=== PATIENT | female | born 1950 | race Caucasian/White ===

== ENCOUNTER → 2020-07-18 | Outpatient (CLI) | payer OTHER ==
--- NOTE | 2020-07-18 12:56 | RAD ---
EXAM: Left shoulder, 3 views; left humerus, 2 views. HISTORY: Fall. COMPARISON: None. FINDINGS: 3 views of left shoulder and 2 views of the left humerus are obtained. There is a displaced humeral head and neck fracture. The acromioclavicular joint is intact. There is no shoulder dislocation. There is cervical spinal fusion instrumentation. IMPRESSION: Displaced left humeral head and neck fracture. Electronically signed by: Rosaline Javed MD (07/18/2020 12:54 PM) [id number]
--- NOTE | 2020-07-18 13:22 | RAD ---
EXAM: Right breast sonogram. HISTORY: 70-year-old female presents with a right breast lump and bruising after a fall. TECHNIQUE: Sonographic imaging of the right breast was performed. COMPARISON: None. FINDINGS: There is a complex hypoechoic and isoechoic lesion with small fluid component within the 1:00 position of the right breast 3 cm from the nipple at the site of palpable concern, measuring 1.5 x 0.8 x 1.5 cm. This demonstrates no internal blood flow. There is overlying skin ecchymosis. IMPRESSION: 1. 1.5 cm suspected hematoma at the site of palpable concern within the right breast at the 1:00 position. This demonstrates no internal blood flow to suggest a solid lesion component. However, follow-up in 3 months is recommended to confirm interval decrease or resolution. 2. BI-RADS Category 3: Probably benign finding(s). Short term follow up with a right breast sonogram in 3 months is recommended. Electronically signed by: Rosaline Javed MD (07/18/2020 1:19 PM) [id number]
--- NOTE | 2020-07-18 13:38 | RAD ---
EXAM: Chest CT without intravenous contrast. HISTORY: Abnormal weight loss. TECHNIQUE: Computed tomographic images of the chest were obtained without contrast. Multiplanar reformatting was performed. *One or more of the following individualized dose reduction techniques were utilized for this examination: 1. Automated exposure control. 2. Adjustment of the mA and/or kV according to patient size. 3. Use of iterative reconstruction technique. COMPARISON: None. FINDINGS: The heart is normal in size. There is a small pericardial effusion. There is calcified atherosclerotic plaque involving the aorta, main aortic branch vessels and coronary arteries. There is calcification of the aortic valve. There are nonspecific mediastinal and hilar lymph nodes. These are not pathologically enlarged. There is no pneumothorax or pleural effusion. There is pulmonary emphysema. There is mild biapical pleural parenchymal scarring. There is no pulmonary nodule. There is no infiltrate. No hepatic lesion is seen. There is an enlarged left hepatic lobe and relatively small right hepatic lobe. The visualized portions of the pancreas are unremarkable. There is a suspected 2.0 cm right adrenal adenoma or nodular thickening of the right adrenal gland. The visualized kidneys demonstrate no mass or stone. There are chronic moderate severe L2 and mild L1 compression fractures. There are are stable mild superior thoracic superior endplate depressions. No acute fracture is seen. There is no suspicious osseous lesion. There is multilevel degenerative change involving the thoracic and lumbar spine. IMPRESSION: 1. Pulmonary emphysema. There is no acute thoracic finding or evidence of thoracic malignancy. 2. Suspected 2.0 cm right adrenal adenoma or nodular thickening of the right adrenal gland. 3. Small pericardial effusion. Electronically signed by: Rosaline Javed MD (07/18/2020 1:35 PM) [id number]
== END ==
LOC: DXRAD 12:19
PROVIDERS: ATTEND Specialist
DX: S42.212A Unspecified displaced fracture of surgical neck of left humerus, initial encounter for closed fracture (principal); M47.815 Spondylosis without myelopathy or radiculopathy, thoracolumbar region; R63.4 Abnormal weight loss; R29.898 Other symptoms and signs involving the musculoskeletal system; I31.3 Pericardial effusion (noninflammatory); I70.0 Atherosclerosis of aorta; I25.10 Atherosclerotic heart disease of native coronary artery without angina pectoris; J43.9 Emphysema, unspecified; J98.4 Other disorders of lung; M48.56XA Collapsed vertebra, not elsewhere classified, lumbar region, initial encounter for fracture; X58.XXXA Exposure to other specified factors, initial encounter; Y93.89 Activity, other specified; Y92.89 Other specified places as the place of occurrence of the external cause; Y99.8 Other external cause status
CPT/HCPCS: 71250; 73030; 73060; 76641

== ENCOUNTER → 2020-08-01 | Outpatient (CLI) | payer OTHER ==
--- NOTE | 2020-08-01 16:31 | RAD ---
SHOULDER 2+V LEFT DATE: 08/01/2020 12:00 AM INDICATION: LEFT SHOULDER PAIN / Spl. Instructions: / History: COMPARISON: 07/18/2020. FINDINGS/ IMPRESSION: Displaced proximal humerus fracture with unchanged fracture fragment alignment. No significant interval healing changes. Electronically signed by: Primitivo Leung MD (08/01/2020 4:28 PM) [id number]
== END ==
LOC: DXRAD 14:37
PROVIDERS: ATTEND Orthopaedic Surgery
DX: S42.202A Unspecified fracture of upper end of left humerus, initial encounter for closed fracture (principal); S42.309A Unspecified fracture of shaft of humerus, unspecified arm, initial encounter for closed fracture; X58.XXXA Exposure to other specified factors, initial encounter; Y93.89 Activity, other specified; Y92.89 Other specified places as the place of occurrence of the external cause; Y99.8 Other external cause status
CPT/HCPCS: 73030

== ENCOUNTER → 2020-08-28 | Outpatient (CLI) | payer OTHER ==
--- NOTE | 2020-08-28 16:26 | RAD ---
EXAM: DUAL ENERGY X-RAY ABSORPTIOMETRY (DEXA). HISTORY: Postmenopausal screening. FINDINGS: The lowest measured T-score is -2.8 in the right femoral neck, based on a bone mineral dens ity of 0.642 g/cm^2. Refer to the worksheets for full detail. No comparison examinations are available. IMPRESSION: Osteoporosis. Bone mineral density yields a T-score of -2.5 or less. Fracture risk is high. FRAX was not calculated. METHODOLOGY: Dual energy x-ray absorptiometry was performed to measure bone mineral density. The foll owing analysis is based on the 2019 Official Positions of the International Society for Clinical Dens itometry: Measurements of the hips and the average of L1-L4 are preferred. When the spine and/or hip cannot be feasibly measured or interpreted, or in the setting of hyperparathyroidism, distal radial bone minera l density may be measured. The lumbar spine T-score is based on the average bone mineral density of L1-L4. In the setting of art ifact or anatomic abnormality, some lumbar levels may be excluded, and the remaining levels used for calculation. A single lumbar level is not used for diagnosis, and if only a single level is available for assessment, another anatomic site will be used to assign a diagnosis. The hip T-score is based on the bone mineral density measurement of the femoral neck or total proxima l femur of either side, whichever is lowest. Bilateral mean values are not used for diagnosis. The forearm T-score is derived from 33% of the distal radius of the nondominant forearm. For postmenopausal and perimenopausal women, and men age 50 or older, of all ethnic groups, T-scores are calculated through comparison of the current measurement with the NHANES III database standard fo r females aged 20-29 years. The lowest T-score of the evaluated anatomic sites is used to a ssign a diagnosis based on the World Health Organization densitometric classification. In premenopausal females and males younger than age 50, a Z-score is calculated based on population s pecific reference data for patient sex and self-reported ethnicity. Electronically signed by: Ozzy Salazar MD (08/28/2020 4:23 PM) [facility]
== END ==
LOC: DXRAD 11:14
PROVIDERS: ATTEND Orthopaedic Surgery
DX: M81.0 Age-related osteoporosis without current pathological fracture (principal)
CPT/HCPCS: 77080

== ENCOUNTER → 2020-08-29 | Outpatient (CLI) | payer OTHER ==
--- NOTE | 2020-08-29 18:30 | RAD ---
Examination: XR SHOULDER_LEFT 2+ VIEWS History: Reason: HUMERUS FRACTURE / Spl. Instructions: / History: Comparison/Correlation: 08/01/2020 Left Shoulder x-ray Findings: 2 images of the left shoulder were obtained. These include scapular Y view and frontal view . Displaced left humeral anatomic neck fracture is again seen. There is suggestion of less displaceme nt on the current exam is compared to previous dissection the frontal view although this may be parti ally in part positional. Callus formation is seen. No new fractures or bone destruction in the interv al. Impression: Callus formation at the left humeral neck fracture. Partial reduction of the fracture is suggested bu t may be artifactual involutional. Electronically signed by: Irvin Paredes MD (08/29/2020 6:28 PM) [id number]
== END ==
LOC: DXRAD 15:26
PROVIDERS: ATTEND Orthopaedic Surgery
DX: S42.202A Unspecified fracture of upper end of left humerus, initial encounter for closed fracture (principal); X58.XXXA Exposure to other specified factors, initial encounter; Y93.89 Activity, other specified; Y92.89 Other specified places as the place of occurrence of the external cause; Y99.8 Other external cause status
CPT/HCPCS: 73030